=== PATIENT | male | born 1990 | race Two or more races ===

== ENCOUNTER 2024-05-03 09:48 | Emergency (ER) | payer SELFPAY ==
[~2024-05-03] VITALS: Ht 154.9 cm; Wt 63.6 kg
[2024-05-03 10:15] VITALS: BP 107/58; PULSE 75; RESP 18; TEMP 97.1; O2SAT 96
[2024-05-03] MEDS: PERTUSS(ACELL),DIPH,TET/PF 0.5 ML SYRINGE [ADULT] IM. ONE (11:23)
== END 2024-05-03 12:18 | disposition home or self-care (01) ==
LOC: EMS 09:48
DX: S61.212A Laceration without foreign body of right middle finger without damage to nail, initial encounter (principal); Z23 Encounter for immunization; Z59.00 Homelessness unspecified; W26.8XXA Contact with other sharp object(s), not elsewhere classified, initial encounter; Y93.89 Activity, other specified; Y92.89 Other specified places as the place of occurrence of the external cause; Y99.8 Other external cause status
CPT/HCPCS: 90471; 90715; 99283